=== PATIENT | female | born 1995 | race African-American/Black ===

== ENCOUNTER 2020-01-02 12:09 | Emergency (ER) | payer OTHER ==
[~2020-01-02] VITALS: Ht 172.7 cm; Wt 77.1 kg
[2020-01-02 12:30] VITALS: BP 152/85
== END 2020-01-02 21:21 | disposition home or self-care (01) ==
LOC: ER 12:09
DX: J06.9 Acute upper respiratory infection, unspecified (principal); Z20.828 Contact with and (suspected) exposure to other viral communicable diseases
CPT/HCPCS: 36415; 71045; 87426; 99284; C9803; U0003